=== PATIENT | female | born 1935 | race Caucasian/White ===

== ENCOUNTER 2020-11-11 19:01 | Inpatient (IN) | payer MEDICARE ==
[~2020-11-11] VITALS: Ht 165.1 cm; Wt 89.4 kg
[2020-11-12] VITALS (7 sets, daily range): BP systolic 92–159; BP diastolic 56–83
--- NOTE | 2020-11-12 11:05 | NUR ---
RECEIVED PATIENT TRANSFERRED FROM [facility] VIA [facility] ASSISTED BY AMBULANCE PERSONNEL. TRANSFERRED TO BED AND MADE COMFORTABLE. WITH COMPLAINT OF PAIN AT RIGHT UPPER EXTREMITY WHEN MOVED. WITH IV ACCESS AT RIGHT UPPER ARM, SALINE LOCKED. SAFETY MEASURES IN PLACED. CALL LIGHT WITHIN REACH. BED ON LOWEST LOCKED POSITION. SIDE RAILS UP X 2. WILL CONTINUE TO MONITOR.
[2020-11-12] MEDS ORDERED: ENOX40DI SQ (11:34)
[2020-11-12] MEDS ORDERED: CALC1TAB30 PO (11:34)
[2020-11-12] MEDS ORDERED: CHOL100062 PO (11:34)
[2020-11-12] MEDS ORDERED: ONDA4VIA52 IV (11:34)
[2020-11-12] MEDS ORDERED: MORP2VIA IV (11:34)
[2020-11-12] MEDS ORDERED: MULT-447 PO (11:34)
[2020-11-12] MEDS ORDERED: ACETAMINOPHEN 325 MG TABLET PO PRN (14:30)
[2020-11-12] MEDS ORDERED: MAG HYDROX/AL HYDROX/SIMETH 30 ML UDC PO PRN (14:30)
[2020-11-12] MEDS ORDERED: ZOLPIDEM TARTRATE 5 MG TABLET PO PRN (14:30)
[2020-11-12] MEDS ORDERED: MORPHINE SULFATE INJ 2 MG/ML DISP.SYRIN IV PRN (14:30)
[2020-11-12] MEDS ORDERED: Z GUARD REMEDY 2 OZ OINT TP PRN (14:30)
[2020-11-12] MEDS ORDERED: ONDANSETRON HCL/PF 4 MG/2 ML VIAL IVP PRN (14:30)
--- NOTE | 2020-11-12 17:26 | NUR ---
RN MS NOTES PT IN BED. AWAKE, ALERT AND ORIENTED, NOT IN PAIN OR DISTRESS, PT SIGNED THE CONSENTS, SON AT BEDSIDE, SEEN BY DR. JOYCE, PLAN OF CARE DISCUSSED WITH PT, PICKED UP BY O.R. STAFF VIA BED, LEFT FOR O.R. IN STABLE CONDITION
[2020-11-12] MEDS ORDERED: KETOROLAC TROMETHAMINE INJ 30 MG/ML VIAL ONE (17:45)
[2020-11-12] MEDS ORDERED: POLYMYXIN B SULFATE 500,000 UNITS ONE (17:46)
[2020-11-12] MEDS ORDERED: LIDOCAINE 2% 50 ML MDV IJ ONE (17:46)
[2020-11-12] MEDS ORDERED: CEFAZOLIN 1 GM ONE (17:49)
[2020-11-12] MEDS ORDERED: VANCOMYCIN 1 GM VIAL ONE ×2 (17:49→20:18)
[2020-11-12] MEDS ORDERED: MORPHINE SULFATE INJ 4 MG/ML DISP.SYRIN ONE (17:52)
[2020-11-12] MEDS ORDERED: TRANEXAMIC ACID 1,000 MG in IV NS 0.9% 100 ML IV ONE (18:00)
[2020-11-12] MEDS ORDERED: SUCCINYLCHOLINE CHLORIDE 20 MG/ML VIAL ONE (18:04)
[2020-11-12] MEDS ORDERED: FENTANYL PF 100MCG/2ML AMPUL ONE ×2 (18:04→21:52)
[2020-11-12] MEDS ORDERED: ROCURONIUM BROMIDE 50 MG/5 ML ONE (18:04)
[2020-11-12] MEDS ORDERED: LIDOCAINE MPF 1%-EPI 1:200,000 30 ML VIAL IJ ONE (18:35)
[2020-11-12] MEDS ORDERED: BUPIVACAINE 0.25% 75 MG/30 ML VIAL ONE (18:35)
[2020-11-12] MEDS ORDERED: GLYCOPYRROLATE 0.2 MG/ML VIAL ONE ×2 (19:00→20:41)
[2020-11-12 22:24] LABS: BILIRUBIN,URINE SMALL (NEGATIVE); COLOR,URINE RED (YELLOW); LEUKOCYTE ESTERASE ,URINE TRACE (NEGATIVE); NITRITE, URINE NEGATIVE (NEGATIVE); PH,URINE 5.5 (5.0-8.0); PROTEIN,URINE 30 mg/dl (NEGATIVE); UGLUCOSE NEGATIVE (NEGATIVE); UROBILINOGEN,URINE 0.2 EU/dL (0.2)
[2020-11-12 22:35] LABS: BACTERIA,URINE None seen /HPF (None Seen); RBC,URINE TOO NUMEROUS TO COUN /HPF (0-2); SQUAMOUS EPITHELIAL CELL,UR Few /HPF (None Seen)
--- NOTE | 2020-11-12 22:45 | NUR ---
CONTINUITY OF CARE Patient transported by bed to room 322-1 from OR/PACU. Patient s/p Left Hemiarthroplasty. Left hip incision covered with surgical tape. Patient is awake, restless and confused, trying to remove IV lines. Bilateral soft wrist restraints in place, per report IVANA Wu patient was agitated in PACU. Fall precaution maintained.
--- NOTE | 2020-11-13 00:10 | NUR ---
FALL Patient found on the floor, on prone position beside low bed. Patient denies pain, awake and verbally responsive. Skin assessment done, left hip surgical incision no bleeding. Patient able to move BUE without c/o pain, BLE weakness, able to move toes. Charli arms with skin tear, mepilex applied. No bump or cuts on head. Notified MD. Transferred patient back to bed with 8 person assist, supported left hip during transfer. Patient still denies pain, A/O x2 to self, knows month and year, disoriented with place. When asked how she fell, patient stated, she is trying to get up and walk. Bed alarm audible, incident was sudden.
[2020-11-13 00:15] VITALS: BP 141/71
--- NOTE | 2020-11-13 00:27 | NUR ---
XRAY LEFT HIP Stat order placed for xray left hip. Will check for result and notify
[2020-11-13] MEDS: CALCIUM CARB 250MG /VITAMIN D 1 UDTAB PO SCH ×4 (00:30→16:25)
[2020-11-13 00:45] VITALS: BP 140/68
[2020-11-13] MEDS: LORAZEPAM INJ 2 MG/ML VIAL IV PRN ×2 (00:47→22:01)
--- NOTE | 2020-11-13 00:51 | NUR ---
ATIVAN IV Patient still restless and agitated, given Ativan, awaiting Xray left hip.
--- NOTE | 2020-11-13 01:10 | NUR ---
STAT XRAY L HIP Xray left hip completed, pending result. Patient in bed, sleeping arouses easily.
[2020-11-13 01:45] VITALS: BP 115/63
[2020-11-13] MEDS ORDERED: CEFAZOLIN 2 GM in IV D5W 100 ML IV SCH (02:00)
[2020-11-13 02:45] VITALS: BP 126/71
--- NOTE | 2020-11-13 03:00 | NUR ---
CEFAZOLIN DOSE On IV Cefazolin q8 hours, due at 0200am. Medication not available at this time.
--- NOTE | 2020-11-13 04:07 | NUR ---
XRAY L HIP RESULTED 0400am Received call from Radiology. Spoke with Dr. Patrick, per MD Patient had another fx in the left hip from the fall. Call reported to Dr. Alarcon immediately.
--- NOTE | 2020-11-13 04:17 | NUR ---
NOTIFIED [address] Alarcon, relayed another fracture in Left hip as reported by Radiolgy/Dr. Patrick. Dr. Alarcon ordered to keep patient NPO, lab in am, and IVF. Will notify Ortho early in am.
[2020-11-13] MEDS: IV D5/0.45 NACL 1,000 ML IV PRN (04:53)
--- NOTE | 2020-11-13 05:07 | NUR ---
STAT XRAY R HIP Xray R hip completed, pending result. Patient in bed, awake, remains confused. A/O x1 to self, knows month November and 1920. Maintained bed in low position, bed alarm on and audible.
--- NOTE | 2020-11-13 05:14 | NUR ---
CEFAZOLIN DOSE On IV Cefazolin q8 hours, due at 0500am. Medication not available at this time.
[2020-11-13 06:13] LABS: BASOPHILS % (AUTO) 0.1 % (0.0-2.0); HEMATOCRIT 38 % (33-45); HEMOGLOBIN 12.5 g/dL (11.5-14.8); LYMPHOCYTES # (AUTO) 0.5 K/uL (0.8-4.8); LYMPHOCYTES % (AUTO) 4.5 % (20.0-44.0); MEAN CORPUSCULAR HGB CONC 33 g/dl (31.0-36.0); MEAN CORPUSCULAR VOLUME 91 fL (82-100); MONOCYTES # (AUTO) 0.8 K/uL (0.1-1.30); MONOCYTES % (AUTO) 6.7 % (2.0-12.0); NEUTROPHILS # (AUTO) 10.2 K/uL (1.8-8.9); NEUTROPHILS % (AUTO) 88.7 % (43.0-81.0); PLATELET COUNT (AUTO) 181 K/uL (150-450); RED BLOOD CELL COUNT(AUTO) 4.14 MIL/uL (4.0-5.2); WHITE BLOOD COUNT (AUTO) 11.5 K/uL (4.3-11.0)
--- NOTE | 2020-11-13 06:33 | NUR ---
NOTIFIED ORTHO/DR. ANGELA Call Dr. Angela, unable to reach MD. Left message to voice mail.
[2020-11-13 06:45] LABS: ALANINE AMINOTRANSFERASE 20 U/L (12-78); ALBUMIN 2.5 g/dL (3.4-5.0); ALKALINE PHOSPHATASE 63 U/L (46-116); ASPARTATE AMINOTRANSFERASE 35 U/L (15-37); BILIRUBIN,TOTAL 0.5 mg/dL (0.2-1.0); CALCIUM, SERUM 8.8 mg/dL (8.5-10.1); CARBON DIOXIDE 29 mmol/L (21-32); CHLORIDE 104 mmol/L (98-107); CREATININE 1.1 mg/dL (0.6-1.3); GLUCOSE 168 mg/dL (74-106); MAGNESIUM 2.1 mg/dL (1.8-2.4); PHOSPHORUS 2.6 mg/dL (2.5-4.9); SODIUM SERUM 138 mmol/L (136-145); TOTAL PROTEIN, SERUM 5.9 g/dL (6.4-8.2); UREA NITROGEN, BLOOD 11 mg/dL (7-18)
[2020-11-13 06:48] LABS: IRON, SERUM 18 ug/dl (50-175); TOTAL IRON BINDING CAPACITY 188 ug/dl (250-450)
--- NOTE | 2020-11-13 06:50 | NUR ---
END OF SHIFT REPORT Patient in bed, calm at this time. Remains alert to self, forgetful, confused at times. Bilateral soft wrist restraints in place. Ongoing IVF, patient to keep NPO per Dr. Alarcon. Left hip incision dressing intact, no bleeding. LLE decrease ROM, denies pain, s/p L hip Hemiarthroplasty 11/12/20. Now with another fracture left hip d/t fall after surgery. Called made to Ortho/ Dr. Angela, awaiting respond. Spoke with son Mohsen, informed the incident and patient current condition, son will be visiting patient today. R hip Xray pending result. Will endorse to oncoming RN.
--- NOTE | 2020-11-13 07:25 | NUR ---
RN OPENING NOTE RECEIVED PATIENT IN BED. A/O X2. CONFUSED. PT HAS A RESTRAINT ON BOTH WRIST. HAS A SITTER AT THE BEDSIDE. ON 02 2LPM VIA NC. NO SOB NOTED. NO S/S OF RESPIRATORY DISTRESS. NO IV ACCESS AT THE MOMENT, PT'S IV ON THE R ARM GOT INFILTRATED. OGLESBY CATHETER IN PLACE, DRAINING YELLOW URINE. DENIES ANY PAIN AT THIS TIME. SAFETY MEASURES AND FALL RISK OBSERVED. BED IN LOWEST POSITION, BRAKES LOCKED. SIDE RAILS UP X2. CALL LIGHT WITHIN REACH. WILL CONTINUE PLAN OF CARE.
--- NOTE | 2020-11-13 07:42 | NUR ---
IV PERIPHERAL LINE Right AC peripheral line infiltrated. Attempted to insert another peripheral line, unsuccessful attempt x2. Patient is hard stick. Endorsed to Frankie lópez RN.
[2020-11-13] MEDS: ENSURE ENLIVE CHOC 237 ML CAN PO SCH ×3 (08:10→16:25)
[2020-11-13] MEDS: ZINC SULFATE 220 MG CAPSULE PO SCH (08:11)
[2020-11-13] MEDS: MULTIVIT W/MINERALS 1 TAB TABLET PO SCH (08:11)
[2020-11-13] MEDS: ASCORBIC ACID 500 MG TABLET PO SCH ×2 (08:11→16:25)
[2020-11-13] MEDS: CHOLECALCIFEROL 1,000 UNIT TABLET (VIT D3) PO SCH (08:11)
--- NOTE | 2020-11-13 08:50 | NUR ---
RN NOTE R ARM IV INFILTRATED, SWOLLEN. ORDERED A MIDLINE. CHARGE NURSE IS AWARE.
--- NOTE | 2020-11-13 08:50 | NUR ---
RN NOTE GOT A TELEPHONE ORDER FROM DR. MONTENEGRO FOR CT PELVIS W/O CONTRAST, CT OF LEFT FEMUR W/O CONTRAST WITH 3D RECONSTRUCTION AND TO PUT THE PT BACK ON REGULAR DIET. ORDERS READ BACK AND CARRIED OUT.
[2020-11-13] MEDS ORDERED: CALCIUM CARB 250MG /VITAMIN D 1 UDTAB PO SCH (09:00)
--- NOTE | 2020-11-13 09:17 | NUR ---
WOUND CARE CONSULT: PT PRESENTS WITH SKIN TEARS AND DISCOLORATION TO ARMS. RECOMMENDATIONS MADE FOR WOUND CARE AND SKIN PROTECTION. DISCUSSED WITH NURSING STAFF. FAMILY AT BEDSIDE. MD IN AGREEMENT WITH PLAN OF CARE.
--- NOTE | 2020-11-13 13:24 | NUR ---
RN NOTE DR MONTENEGRO ORDERED TO STOP THE AMBIEN. ORDER CARRIED OUT.
[2020-11-13] MEDS: CEFAZOLIN 2 GM in IV D5W 100 ML IV SCH ×2 (15:12→22:46)
--- NOTE | 2020-11-13 18:38 | NUR ---
RN CLOSING NOTE PATIENT RESTING IN BED. A/O X2. HAS EPISODES OF CONFUSION. SITTER AT THE BEDSIDE. ON 02 2LPM VIA NC. NO SOB NOTED. IN NO APPARENT DISTRESS. LIZZETH MIDLINE #18 G, INTACT AND PATENT. NO SIGNS OF INFILTRATION. OGLESBY CATHETER IN PLACE, DRAINING YELLOW URINE. NO REPORTS OF PAIN OR DISCOMFORT AT THIS TIME. ALL DUE MEDS GIVEN ORDERED. ALL NEEDS HAVE BEEN MET AND ATTENDED. SAFETY MEASURES AND FALL RISK OBSERVED. BED IN LOWEST POSITION, BRAKES LOCKED. SIDE RAILS UP X2. KEPT CALL LIGHT WITHIN REACH. WILL ENDORSE CONTINUITY OF CARE TO ONCOMING SHIFT.
--- NOTE | 2020-11-13 19:30 | NUR ---
CONTINUITY OF CARE Patient in bed, awake, family at bedside. Patient is calm at this time. On supplemental Oxygen at 2L via NC, saturating 98%. Sitter at bedside, Turned and repositioned patient. Left hip dressing intact, bhandari cath in place, urine zoya, no blood, no clots. Fall precaution maintained
[2020-11-13 20:00] VITALS: BP 114/61
[2020-11-13] MEDS ORDERED: VANCOMYCIN 1 GM in IV D5W 250 ML IV ONE (20:00)
[2020-11-13] MEDS ORDERED: ENOXAPARIN SODIUM 30 MG/0.3 ML DISP.SYRIN SQ SCH ×2 (21:00)
[2020-11-13] MEDS: ENOXAPARIN SODIUM 40 MG/0.4 ML DISP.SYRIN SQ SCH (21:00)
--- NOTE | 2020-11-13 21:08 | NUR ---
ANTICOAGULANT H/H 12. Plt 181 No active bleeding, no hematuria. Lovenox given co-signed by IVANA Torres.
--- NOTE | 2020-11-13 22:05 | NUR ---
RESTLESS Patient with confusion, trying to get up. Sitter at bedside, released restraints, BUE CSM intact, patient trying to pull out IV lines, sliding herself to the foot of the bed. Unable to control anxiety, Ativan given, fall precaution maintained, 1:1 sitter at bedside.
[2020-11-13 23:45] VITALS: BP 166/94
[2020-11-14] MEDS ORDERED: LEVALBUTEROL HCL NEB 1.25 MG/0.5 ML VIAL.NEB NEB PRN (00:30)
--- NOTE | 2020-11-14 00:46 | NUR ---
WHEEZING 23:45 Patient Oxygen sat 94% on 2L via NC, noted with wheezing. V/S checked, Spiked temp 101.6 BP 166/94 Pulse 115 RR 38 Cooling measure given. Notified .
--- NOTE | 2020-11-14 01:03 | NUR ---
NEW ORDERS Blood culture done, urine send to lab for test. Patient still restless after medicated with Ativan. Turned and repositioned, limited movement LLE with facial grimace d/t pain. Morphine given, maintained fall precaution.
[2020-11-14] MEDS ORDERED: PIPERACILLIN /TAZOBACTAM 3.375 G VIAL IV ONE ×2 (01:05→05:45)
[2020-11-14 01:14] LABS: BILIRUBIN,URINE NEGATIVE (NEGATIVE); COLOR,URINE YELLOW (YELLOW); LEUKOCYTE ESTERASE ,URINE TRACE (NEGATIVE); NITRITE, URINE NEGATIVE (NEGATIVE); PROTEIN,URINE TRACE mg/dl (NEGATIVE); UGLUCOSE NEGATIVE (NEGATIVE); UROBILINOGEN,URINE 0.2 EU/dL (0.2)
[2020-11-14] MEDS: PIPERACILLIN /TAZOBACTAM 3.375 G in IV D5W 50 ML IV SCH ×2 (01:17→07:25)
[2020-11-14 01:23] LABS: BACTERIA,URINE None seen /HPF (None Seen); RBC,URINE 51-80 /HPF (0-2); SQUAMOUS EPITHELIAL CELL,UR Few /HPF (None Seen)
--- NOTE | 2020-11-14 01:55 | NUR ---
RESTRAINTS Released restraints, CSM intact. Patient remains restless and confused. Still trying to remove tubing and lines as soon as released from restraints, BUE strong. Frequent reorientation, incoherent and not follow commands. Bilateral soft wrist restraint reapplied.
[2020-11-14] MEDS ORDERED: CEFAZOLIN 2 GM in IV D5W 100 ML IV SCH (02:00)
[2020-11-14 06:11] LABS: BASOPHILS % (AUTO) 0.3 % (0.0-2.0); EOSINOPHILS % (AUTO) 0.7 % (0.0-6.0); HEMATOCRIT 33 % (33-45); HEMOGLOBIN 11.2 g/dL (11.5-14.8); LYMPHOCYTES % (AUTO) 10.8 % (20.0-44.0); MEAN CORPUSCULAR HGB CONC 34 g/dl (31.0-36.0); MEAN CORPUSCULAR VOLUME 91 fL (82-100); MONOCYTES # (AUTO) 0.9 K/uL (0.1-1.30); NEUTROPHILS % (AUTO) 78.2 % (43.0-81.0); PLATELET COUNT (AUTO) 190 K/uL (150-450); RED BLOOD CELL COUNT(AUTO) 3.65 MIL/uL (4.0-5.2)
[2020-11-14 06:21] LABS: CALCIUM, SERUM 8.6 mg/dL (8.5-10.1); CREATININE 1.2 mg/dL (0.6-1.3); MAGNESIUM 2.2 mg/dL (1.8-2.4); POTASSIUM 3.6 mmol/L (3.5-5.1)
--- NOTE | 2020-11-14 06:54 | NUR ---
END OF SHIFT REPORT Patient remains A/O x1-2, restless at time with confusion. Temp curved down, now 97.9F after cooling measure and Tylenol. Ongoing IVF, on abx Zosyn and Vanco. Jung cath care done, urine red and with blood tinged. Urine test resulted, notified MD with no further orders at this time. Patient now appears calm in bed in the last 2 hours, bilateral soft wrist restraints released, CSM BUE intact. Sitter at bedside.
--- NOTE | 2020-11-14 07:43 | NUR ---
MS RN OPENING NOTE RECEIVED PATIENT LYING IN BED, AWAKE. A/O X1, PATIENT APPEARS RESTLESS AND SLIGHTLY CONFUSED. SITTER AT BEDSIDE. ON 2L OXYGEN VIA NASAL CANNULA - TOLERATING WELL. SOME WHEEZING NOTED. IV ACCESS TO LEFT UPPER ARM - MIDLINE - RUNNING D5 1/2NS @ 70ML/HR. OGLESBY CATHETER NOTED - INTACT AND IN PLACE - DRAINING RED TINGED URINE TO GRAVITY. SAFETY MEASURES IN PLACE. CALL LIGHT WITHIN REACH. WILL CONTINUE TO MONITOR.
--- NOTE | 2020-11-14 07:45 | NUR ---
RT NOTE UNABLE TO OBTAIN ABG SAMPLE DUE TO PATIENT BEING COMBATIVE. SITTER BEDSIDE. RN BARBARA NOTIFIED AND AWARE.
[2020-11-14 08:00] VITALS: BP 118/45
[2020-11-14] MEDS: ENSURE ENLIVE CHOC 237 ML CAN PO SCH ×3 (08:35→16:34)
[2020-11-14] MEDS: CALCIUM CARB 250MG /VITAMIN D 1 UDTAB PO SCH ×3 (08:39→16:34)
[2020-11-14] MEDS: CHOLECALCIFEROL 1,000 UNIT TABLET (VIT D3) PO SCH (08:40)
[2020-11-14] MEDS: ZINC SULFATE 220 MG CAPSULE PO SCH (08:40)
[2020-11-14] MEDS: MULTIVIT W/MINERALS 1 TAB TABLET PO SCH (08:40)
[2020-11-14] MEDS: ASCORBIC ACID 500 MG TABLET PO SCH ×2 (08:40→16:34)
--- NOTE | 2020-11-14 09:29 | NUR ---
WOUND CARE : PT TURNED FOR FULL SKIN ASSESSMENT OF BACK AND SACRAL/BUTTOCKS AREA. SKIN IS INTACT. PT TOLERATED WELL. PT IS QUITE CONFUSED. SITTER AT BEDSIDE. ALL SKIN PROTECTION MEASURES IN PLACE AND DISCUSSED WITH NURSING STAFF.
[2020-11-14] MEDS: PIPERACILLIN /TAZOBACTAM 3.375 G in IV D5W 100 ML IV SCH ×2 (11:52→20:13)
[2020-11-14] MEDS: IV D5/0.45 NACL 1,000 ML IV PRN (12:02)
[2020-11-14] MEDS ORDERED: PIPERACILLIN /TAZOBACTAM 3.375 G in IV D5W 50 ML IV SCH (13:00)
[2020-11-14 14:29] LABS: ABG BASE EXCESS 1.8 mmol/L; ABG OXYGEN SATURATION 94.8 % (92.0-98.5); ABG PH 7.441 (7.350-7.450); AaDO2 82.6 mmHg; MetHb 0.1 % (0.0-1.5); O2Hb 93.8 % (94.0-97.0); SITE, ABG Right Radial; VENT MODE, BG NASAL CANNULA
[2020-11-14] MEDS: LEVALBUTEROL HCL NEB 1.25 MG/0.5 ML VIAL.NEB NEB SCH ×2 (14:35→20:25)
[2020-11-14] MEDS: IPRATROPIUM NEB FS 0.5 MG/2.5 ML AMPUL.NEB NEB SCH ×2 (14:35→20:25)
[2020-11-14] MEDS: VANCOMYCIN 1 GM in IV D5W 250 ML IV SCH (14:50)
[2020-11-14] MEDS ORDERED: HYDROCODONE/APAP 5/325MG TABLET PO PRN (16:00)
--- NOTE | 2020-11-14 18:38 | NUR ---
MS RN CLOSING NOTE PATIENT CURRENTLY LYING IN BED, AWAKE. SITTER AT BEDSIDE. DRIFTS IN AND OUT OF SLEEP. A/O X1-2. PATIENT BECAME MORE ALERT THROUGHOUT THE SHIFT BUT CONFUSED AT TIMES. SOME WHEEZING NOTED. IV ACCESS TO LEFT UPPER ARM - MIDLINE - RUNNING D5 1/2NS @ 70ML/HR. OGLESBY CATHETER NOTED - INTACT AND IN PLACE - DRAINING RED TINGED URINE TO GRAVITY - 500CC OUTPUT THIS SHIFT. PATIENT DID NOT EAT ANY MEALS THIS SHIFT. NO RESTRAINTS NEEDED THIS SHIFT. PATIENT BECAME DNR STATUS. SAFETY MEASURES IN PLACE. CALL LIGHT WITHIN REACH. WILL ENDORSE TO SOLUTION MAKER NURSE FOR EMILEE.
--- NOTE | 2020-11-14 19:57 | NUR ---
MS RN OPENING NOTES: RECEIVED PATIENT SLEEP IN BED COMFORTABLY, BED IN LOW POSITION, CALL LIGHTS WITHIN REACH, NO COMPLAIN OF PAIN AND DISCOMFORT AT THIS TIME, PATIENT IS A/O X2 WITH EPISODE OF CONFUSION ON O2 INHALATION AT 2LPM 96 % SATURATION, WITH !:1 SITTER, IV LINE ON LIZZETH MIDLINE WITH RUNNING D5 1/2 NSS@70ML/HR INFUSING WELL, PATIENT KEPT CLEAN AND DRY, WILL CONTINUE TO MONITOR.
[2020-11-14] MEDS: ENOXAPARIN SODIUM 40 MG/0.4 ML DISP.SYRIN SQ SCH (21:19)
[2020-11-15] MEDS: LEVALBUTEROL HCL NEB 1.25 MG/0.5 ML VIAL.NEB NEB SCH ×4 (01:33→20:20)
[2020-11-15] MEDS: IPRATROPIUM NEB FS 0.5 MG/2.5 ML AMPUL.NEB NEB SCH ×4 (01:33→20:20)
[2020-11-15] MEDS: PIPERACILLIN /TAZOBACTAM 3.375 G in IV D5W 100 ML IV SCH ×2 (04:06→12:16)
--- NOTE | 2020-11-15 06:30 | NUR ---
MS RN CLOSING NOTES: PATIENT SLEEP IN BED COMFORTABLY, AROUSABLE TO STIMULI, BED IN LOW POSITION, CALL LIGHTS WITHIN REACH, NO COMPLAIN OF PAINA ND DISCOMFORT AT THIS TIME, A/O X2 WITH EPISODE OF CONFUSION, WITHIV LINE AT LIZZETH MIDLINE ON D5 / NSS@75ML/HOUR INFUSING WELL, PATIENT KEPT CLEAN AND DRY, ALL NEEDS MET, ENDORSE TO INCOMING SHIFT.
[2020-11-15 06:52] LABS: BASOPHILS % (AUTO) 0.4 % (0.0-2.0); EOSINOPHILS % (AUTO) 2.8 % (0.0-6.0); HEMATOCRIT 29 % (33-45); HEMOGLOBIN 9.8 g/dL (11.5-14.8); LYMPHOCYTES # (AUTO) 1.1 K/uL (0.8-4.8); LYMPHOCYTES % (AUTO) 11.4 % (20.0-44.0); MEAN CORPUSCULAR HGB CONC 34 g/dl (31.0-36.0); MEAN CORPUSCULAR VOLUME 90 fL (82-100); MONOCYTES # (AUTO) 0.9 K/uL (0.1-1.30); MONOCYTES % (AUTO) 9.4 % (2.0-12.0); NEUTROPHILS # (AUTO) 7.3 K/uL (1.8-8.9); PLATELET COUNT (AUTO) 205 K/uL (150-450); RED BLOOD CELL COUNT(AUTO) 3.18 MIL/uL (4.0-5.2); WHITE BLOOD COUNT (AUTO) 9.6 K/uL (4.3-11.0)
[2020-11-15 07:00] VITALS: BP 136/79
[2020-11-15 07:09] LABS: CALCIUM, SERUM 8.4 mg/dL (8.5-10.1); MAGNESIUM 2.1 mg/dL (1.8-2.4); POTASSIUM 3.9 mmol/L (3.5-5.1)
--- NOTE | 2020-11-15 07:25 | NUR ---
MS RN OPENING NOTES: RECEIVED PATIENT AWAKE IN BED IN NO ACUTE SIGNS OF DISTRESS. HOB ELEVATED. 1:1 SITTER AT BEDSIDE. A/O X2. VERBALLY RESPONSIVE, DENIES PAIN AT THIS TIME. DRESSING ON LEFT HIP C/D/I./ ON 02 VIA N/C AT 2LPM. TOLERATING WELL WITH NO SOB NOTED. LIZZETH MIDLINE INTACT WITH D5 1/2 NS @ 70ML/HR INFUSING WELL. OGLESBY IN PLACE DRAINING TEA COLORED URINE VIA GRAVITY. SAFETY MEASURES IN PLACE: BED IN LOWEST LOCKED POSITION WITH SR UP X2. CALL LIGHT WITHIN REACH. WILL CONTINUE TO MONITOR PT CLOSELY.
[2020-11-15] MEDS: VANCOMYCIN 1 GM in IV D5W 250 ML IV SCH (07:56)
[2020-11-15 08:00] VITALS: BP 106/58
[2020-11-15] MEDS: CHOLECALCIFEROL 1,000 UNIT TABLET (VIT D3) PO SCH (08:49)
[2020-11-15] MEDS: ZINC SULFATE 220 MG CAPSULE PO SCH (08:49)
[2020-11-15] MEDS: CALCIUM CARB 250MG /VITAMIN D 1 UDTAB PO SCH ×3 (08:49→17:39)
[2020-11-15] MEDS: MULTIVIT W/MINERALS 1 TAB TABLET PO SCH (08:49)
[2020-11-15] MEDS: ENSURE ENLIVE CHOC 237 ML CAN PO SCH ×3 (08:49→17:42)
[2020-11-15] MEDS: ASCORBIC ACID 500 MG TABLET PO SCH ×2 (08:49→17:39)
--- NOTE | 2020-11-15 14:03 | NUR ---
RN NOTES PATIENT WEANED TO ROOM AIR PER MD ORDER, TOLERATING WELL WITH NO SOB NOTED, SP02 B/W 93-96%. WILL CONTINUE TO MONITOR
[2020-11-15 16:00] VITALS: BP 122/62
--- NOTE | 2020-11-15 18:41 | NUR ---
MS RN CLOSING NOTES: PATIENT IN BED AWAKE AT THIS TIME WITH 1:1 SITTER AT BEDSIDE. A/O X3-4. ABLE TO MAKE NEEDS , PERIOD OF FORGETFULNESS NOTED, REORIENTED AND REDIRECTED. DRESSING ON LEFT HIP C/D/I. ON ROOM AIR, TOLERATING WELL, BREATHING EVEN AND UNLABORED. LIZZETH MIDLINE INTACT AND PATENT WITH D5 1/2 NS @ 70ML/HR INFUSING WELL. OGLESBY IN PLACE DRAINING TEA COLORED URINE VIA GRAVITY, OGLESBY CARE DONE. PT TURNED AND REPOSITIONED Q2HRS AND PRN. ALL NEEDS AND CARE ATTENDED WELL. SAFETY MEASURES KEPT IN PLACE: BED IN LOWEST LOCKED POSITION WITH SR UP X2. CALL LIGHT WITHIN REACH. WILL ENDORSE EMILEE TO SENIOR PRODUCT ANALYST NURSE.
--- NOTE | 2020-11-15 19:10 | NUR ---
RN NOTES: RECEIVED AWAKE IN BED WITH 1:1 SITTER AT BEDSIDE. A/O 2-3, WITH PERIODS OF CONFUSION AND FORGETFULNESS, DRESSING ON LEFT HIP C/D/I. BREATHING SPONTANEOUSLY ON ROOM AIR, NO SIGN OF RESPIRATORY DISCOMFORT. LIZZETH MIDLINE PATENT, IVF OF D5 1/2 NS @ 70ML/HR VIA INFUSION PUMP. OGLESBY CATH IN PLACED DRAINING INTO TEA COLORED URINE AT 50 CC LEVEL, ORIENTED TO UNIT AND STAFF. -FALL,SAFETY AND ASPIRATION PRECAUTION OBSERVED, BED LOW AND LOCKED, SIDE RAILS UPX3, KEPT CALL LIGHT WITHIN EASY REACH. -ON CLOSE VISUAL CHECK.INCENTIVE SPIROMETER AVAILABLE AT BED SIDE GIVEN INSTRUCTION TO USE Q HOURLY TOLERATED.
[2020-11-15] MEDS: ENOXAPARIN SODIUM 40 MG/0.4 ML DISP.SYRIN SQ SCH (21:00)
--- NOTE | 2020-11-15 21:07 | NUR ---
RN NOTES: JOHNNY HAQUE TRIED TO TAKE HER V/S BUT SHE STRONGLY REFUSED. -RN CAME AND EXPLAINED TO HER CAN WE GET THE V/S LATER ON SHE SAID "NO PLEASE, I JUST WANT TO SLEEP AND REST AND I DONT WANT ANYBODY TO DISTURBE ME". -INSTRUCT RN WE WILL TRY AGAIN LATER ONCE SHE IS AWAKE. Addendum: 11/16/20 at 0316 by DORIS HILL RN MAKE CORRECTION: INSTRUCT JOHNNY HAQUE 1:1 WILL TRY TO CHECK HER V/S AGAIN LATER ONCE SHE IS FULLY AWAKE.
--- NOTE | 2020-11-15 21:29 | NUR ---
RN NOTES: SHE DONT WANT TO BE AWAKEN, SHE REFUSED FOR ANY MEDICATION SHE WAS TELLING I JUST WANT TO SLEEP.RN TRIED TO EXPLAIN TO HER I NEED TO GIVE HER LOVENOX, ITS AN ANTICOAGULANT AND SHE NEEDS IT, RISK AND BENIFITS DISCUSSED, , SHE SAID "PLEASE GET OUT, DO NOT DISTURB ME". -LOVENOX NOT GIVEN, SHE REFUSED.
[2020-11-16] MEDS: IPRATROPIUM NEB FS 0.5 MG/2.5 ML AMPUL.NEB NEB SCH ×4 (01:35→20:14)
[2020-11-16] MEDS: LEVALBUTEROL HCL NEB 1.25 MG/0.5 ML VIAL.NEB NEB SCH ×4 (01:35→20:14)
[2020-11-16] MEDS: IV D5/0.45 NACL 1,000 ML IV PRN ×2 (01:46→19:45)
--- NOTE | 2020-11-16 02:42 | NUR ---
RN NOTES: RECEIVED LYING ON BED, S/P LEFT HIP ARTHROPLASTY(11/12/2020)A/OX2-3, WITH PERIODS OF CONFUSION, 1;1 SITTER AT BED SIDE; BREATHING SPONTANEOUSLY ON ROOM AIR, OGLESBY CATH IN SITE DRAINING INTO TEA COLORED URINE AT 50 CC LEVEL, LIZZETH-ML INTACT WITH IVF OF D51/2 NS AT 75 ML/HR ONGOING, ORIENTED TO UNIT AND STAFF, SHE WAS REMINDED HOW TO USE HER INCENTIVE SPIROMETER AND ENCOURAGE TO DO Q HOURLY TOLERATED AND ABLE. -PER ENDORSEMENT AWAITING,FOR SNF PLACEMENT IN [facility].
--- NOTE | 2020-11-16 04:23 | NUR ---
RN NOTES: -IN DEEP SLEEP, SHE IS SNORING, SHE DID NOT ASK FOR ANY PAIN MEDICATION, NO NAUSEA AND VOMITING NOTED, ASLEEP IN THE NIGHT, SHE DONT WANT TO DISTURBED OR AWAKEN. -SHE REFUSED THE FIRST SCHEDULED RESPIRATORY THERAPIST TREATMENT -SHE AGREE FOR THE 2ND RT TREATMENT, ONLY FOR FEW MINUTES, SHE WAS NOT ABLE TO COMPLETE IT PER SITTER 1;1, SHE REMOVE ASKED TO STOP THE NEBULIZATION.
[2020-11-16 06:00] VITALS: BP 144/65
[2020-11-16 07:30] LABS: BASOPHILS # (AUTO) 0.1 K/uL (0.0-0.2); BASOPHILS % (AUTO) 0.6 % (0.0-2.0); EOSINOPHILS % (AUTO) 3.5 % (0.0-6.0); HEMATOCRIT 29 % (33-45); HEMOGLOBIN 9.8 g/dL (11.5-14.8); LYMPHOCYTES # (AUTO) 1.1 K/uL (0.8-4.8); LYMPHOCYTES % (AUTO) 11.8 % (20.0-44.0); MEAN CORPUSCULAR HGB CONC 34 g/dl (31.0-36.0); MEAN CORPUSCULAR VOLUME 90 fL (82-100); MONOCYTES # (AUTO) 0.9 K/uL (0.1-1.30); MONOCYTES % (AUTO) 9.4 % (2.0-12.0); NEUTROPHILS # (AUTO) 6.9 K/uL (1.8-8.9); NEUTROPHILS % (AUTO) 74.7 % (43.0-81.0); PLATELET COUNT (AUTO) 251 K/uL (150-450); RED BLOOD CELL COUNT(AUTO) 3.18 MIL/uL (4.0-5.2); WHITE BLOOD COUNT (AUTO) 9.2 K/uL (4.3-11.0)
--- NOTE | 2020-11-16 07:30 | NUR ---
RN OPENING NOTE RECEIVED PATIENT IN BED. A/O X2-3. ON 02 2LPM VIA NC. NO SOB NOTED. IN NO APPARENT DISTRESS. IV ACCESS ON LIZZETH MIDLINE, D5 1/2 NS @ 70 ML/HR, INTACT AND PATENT. OGLESBY CATHETER IN PLACE, DRAINING RAY[place] URINE. WITH SITTER AT THE BEDSIDE. SAFETY MEASURES MAINTAINED. BED IN LOWEST POSITION, BRAKES LOCKED. SIDE RAILS UP X2. CALL LIGHT WITHIN REACH. WILL CONTINUE PLAN OF CARE.
--- NOTE | 2020-11-16 07:30 | NUR ---
RN OPENING NOTE RECEIVED PATIENT IN BED. A/O X1. ON 02 2LPM VIA NC. NO SOB NOTED. IN NO APPARENT DISTRESS. IV ACCESS ON R WRIST #20 G, NS RUNNING X 125 ML/HR, INTACT AND PATENT. CURRENTLY ON NPO STATUS. WITH SITTER AT THE BEDSIDE. SAFETY MEASURES MAINTAINED. BED IN LOWEST POSITION, BRAKES LOCKED. SIDE RAILS UP X2. CALL LIGHT WITHIN REACH. WILL CONTINUE PLAN OF CARE. Addendum: 11/16/20 at 0912 by NIYAH EID RN PLEASE DISREGARD THIS NOTE. INTENDED FOR ANOTHER PT
--- NOTE | 2020-11-16 07:35 | NUR ---
RN NOTES: REMAINS ASLEEP ON BED, NO PAIN OR DISCOMFORT IN THE NIGHT, CALLS ANTICIPATED, KEPT IN CLOSE WATCH, WITH 1;1 SITTER, NO SOB, IVF CONTINUE AT 70 ML/HR VIA INFUSSION PUMP, FOR BLOOD TEST IN THE MORNING, ENDORSE TO CONTINUE PT P[ER ORTHO, FOR PULMONARY CONSULT, ABLE TO CHECK V/S IN THE MORNING AT 0600, SHE AGREED BP-138/55. Addendum: 11/16/20 at 0738 by DORIS HILL RN ADDED NOTES: ENDORSED FOR CONTINUITY OF CARE.
[2020-11-16 07:47] LABS: CREATININE 0.8 mg/dL (0.6-1.3); MAGNESIUM 2.2 mg/dL (1.8-2.4); POTASSIUM 3.6 mmol/L (3.5-5.1)
[2020-11-16] MEDS: CALCIUM CARB 250MG /VITAMIN D 1 UDTAB PO SCH ×3 (08:29→17:38)
[2020-11-16] MEDS: ASCORBIC ACID 500 MG TABLET PO SCH ×2 (08:29→17:37)
[2020-11-16] MEDS: MULTIVIT W/MINERALS 1 TAB TABLET PO SCH (08:29)
[2020-11-16] MEDS: ZINC SULFATE 220 MG CAPSULE PO SCH (08:30)
[2020-11-16] MEDS: CHOLECALCIFEROL 1,000 UNIT TABLET (VIT D3) PO SCH (08:30)
[2020-11-16] MEDS: ENSURE ENLIVE CHOC 237 ML CAN PO SCH ×3 (08:30→17:38)
--- NOTE | 2020-11-16 10:14 | NUR ---
RN NOTES RECEIVED REPORT FROM IVANA LINDER. PATIENT IS ALERT AND ORIENTED X2-3 WITH SITTER AT BEDSIDE. NO SOB. NO SIGNS OR SYMTPOMS OF DISTRESS NOTED. WILL MONITOR PATIENT THROUGHOUT SHIFT.
[2020-11-16 13:23] VITALS: BP 144/65
[2020-11-16] MEDS ORDERED: APIXABAN 2.5 MG TABLET PO SCH (17:00)
[2020-11-16] MEDS: RIVAROXABAN 10 MG TABLET PO SCH (17:38)
--- NOTE | 2020-11-16 19:46 | NUR ---
MS RN CLOSING NOTES PATIENT IS RESTING IN BED, COMFORTABLY. PATIENT IS ALERT AND ORIENTED X 3. NO SIGNS OR SYMPTOMS OF DISTRESS NOTED. BREATHING IS EVEN AND UNLABORED. NO COMPLAINTS OF PAIN AT THIS TIME. IV ACCEESS LIZZETH MIDLINE PATENT AND INTACT WITH D51/2 NS@70MLS/HR. ALL NEEDS MET THROUGHOUT SHIFT. SAFETY MEASURES IN PLACE WITH BED LOCKED AT LOW POSITION AND SIDE RAILS UP X 2. CALL LIGHT IS WITHIN REACH. WILL ENDORSE CONTINUITY OF CARE TO ONCOMING SHIFT.
[2020-11-16 20:00] VITALS: BP 137/73
--- NOTE | 2020-11-16 20:00 | NUR ---
MS RN OPENING NOTES Patient is awake, A&Ox3. No signs of distress. IVF restarted to LIZZETH midline. Denies SOB or any pain at this time. Sitter at bedside. All other safety measures in place for fall risk. States that she does not want her bhandari catheter out until she is screened by PT in AM for walking. Explained risks and benefits, still refused.
--- NOTE | 2020-11-16 23:49 | NUR ---
COVID PCR DONE AND WALKED DOWN TO LAB
--- NOTE | 2020-11-16 23:49 | NUR ---
patient refused bhandari catheter removal states she doesn't want it taken out until she is seen by PT in AM.
[2020-11-17] MEDS: LEVALBUTEROL HCL NEB 1.25 MG/0.5 ML VIAL.NEB NEB SCH ×4 (01:23→14:05)
[2020-11-17] MEDS: IPRATROPIUM NEB FS 0.5 MG/2.5 ML AMPUL.NEB NEB SCH ×4 (01:23→14:05)
--- NOTE | 2020-11-17 05:27 | NUR ---
Patient having episodes of confusion after 9pm. Constantly asking sitter who he is, trying to get out of bed. Denies pain, discomfort, or needing to be toileted. Sitter reoriented patient to surroundings. Nurse re-oriented patient to plan of care. Otherwise stable. VS WNL. Surgical dressing to L hip c/d/i. C/o pain to hip x1 resolved after PRN [place] admin. Clear zoya urine draining to catheter bag. Will re-try to persuade patient to remove bhandari when fully awake for today.
[2020-11-17 06:40] LABS: BASOPHILS % (AUTO) 0.3 % (0.0-2.0); EOSINOPHILS % (AUTO) 4.2 % (0.0-6.0); HEMATOCRIT 29 % (33-45); HEMOGLOBIN 9.9 g/dL (11.5-14.8); LYMPHOCYTES % (AUTO) 12.3 % (20.0-44.0); MEAN CORPUSCULAR HGB CONC 34 g/dl (31.0-36.0); MEAN CORPUSCULAR VOLUME 90 fL (82-100); MONOCYTES # (AUTO) 0.9 K/uL (0.1-1.30); MONOCYTES % (AUTO) 10.4 % (2.0-12.0); NEUTROPHILS % (AUTO) 72.8 % (43.0-81.0); PLATELET COUNT (AUTO) 312 K/uL (150-450); RED BLOOD CELL COUNT(AUTO) 3.25 MIL/uL (4.0-5.2); WHITE BLOOD COUNT (AUTO) 8.3 K/uL (4.3-11.0)
--- NOTE | 2020-11-17 07:02 | NUR ---
Patient agreeable. bhandrai catheter removed. tolerated procedure well.
[2020-11-17 07:03] LABS: CALCIUM, SERUM 8.9 mg/dL (8.5-10.1); CREATININE 0.9 mg/dL (0.6-1.3); POTASSIUM 3.6 mmol/L (3.5-5.1)
[2020-11-17] MEDS: ENSURE ENLIVE CHOC 237 ML CAN PO SCH ×3 (09:00→16:12)
[2020-11-17] MEDS: MULTIVIT W/MINERALS 1 TAB TABLET PO SCH (10:25)
[2020-11-17] MEDS: ZINC SULFATE 220 MG CAPSULE PO SCH (10:25)
[2020-11-17] MEDS: CALCIUM CARB 250MG /VITAMIN D 1 UDTAB PO SCH ×3 (10:25→16:12)
[2020-11-17] MEDS: CHOLECALCIFEROL 1,000 UNIT TABLET (VIT D3) PO SCH (10:25)
[2020-11-17] MEDS: ASCORBIC ACID 500 MG TABLET PO SCH ×2 (10:25→16:12)
[2020-11-17] MEDS: RIVAROXABAN 10 MG TABLET PO SCH (16:13)
== END 2020-11-17 18:00 | DRG 956 ==
LOC: EDSEX 11-12 10:51 → MED 11-12 10:51
PROVIDERS: ADMIT Nurse Practitioner Family; ATTEND Nurse Practitioner Family
PROC: 0QS704Z Reposition Left Upper Femur with Internal Fixation Device, Open Approach (ICD-10-PCS; principal; 2020-11-12)
PROC: 05HC33Z Insertion of Infusion Device into Left Basilic Vein, Percutaneous Approach (ICD-10-PCS; 2020-11-13)
DX: S72.002A Fracture of unspecified part of neck of left femur, initial encounter for closed fracture (principal); S32.592A Other specified fracture of left pubis, initial encounter for closed fracture; G92 Toxic encephalopathy; J98.11 Atelectasis; S72.142A Displaced intertrochanteric fracture of left femur, initial encounter for closed fracture; M16.11 Unilateral primary osteoarthritis, right hip; W18.30XA Fall on same level, unspecified, initial encounter; Y92.009 Unspecified place in unspecified non-institutional (private) residence as the place of occurrence of the external cause; D72.829 Elevated white blood cell count, unspecified; Z20.822 Contact with and (suspected) exposure to COVID-19; Z85.3 Personal history of malignant neoplasm of breast; Z90.710 Acquired absence of both cervix and uterus; Z87.891 Personal history of nicotine dependence; W06.XXXA Fall from bed, initial encounter; Y92.89 Other specified places as the place of occurrence of the external cause; I10 Essential (primary) hypertension; E66.01 Morbid (severe) obesity due to excess calories; Z68.32 Body mass index [BMI] 32.0-32.9, adult; M85.80 Other specified disorders of bone density and structure, unspecified site; R31.9 Hematuria, unspecified; R09.02 Hypoxemia; T41.45XA Adverse effect of unspecified anesthetic, initial encounter
CPT/HCPCS: 36410; 36415; 36600; 70450-TC; 71045-TC; 72192-TC; 73020; 73501; 73700-TC; 80048-TC; 80053-TC; 80202-TC; 81001; 82803-TC; 83540-TC; 83735-TC; 84100-TC; 84484-TC; 85025-TC; 85610-TC; 85730-TC; 87040-TC; 87086-TC; 88305-TC; 88311-TC; 93970-TC; 94799-TC; 97112-TC; 97530-TC; A4217; A6209; A6253; C1776; G0378; J0330; J0690; J1100; J1650; J1885; J2060; J2270; J2405; J2543; J2704; J3010; J3370; J3490; J7030; J7060; U0003